=== PATIENT | male | born 1985 | race Hispanic/Latino ===

== ENCOUNTER 2023-06-11 12:41 | Inpatient (IN) | payer SELFPAY ==
[~2023-06-11 12:41] MED LIST: Iopamidol-370 76% 500 ML MDV (1 ML CHARGE) ONE
[2023-06-11] MEDS ORDERED: Ketorolac Tromethamine 30 MG (1 mL) VIAL ONE (13:20)
[2023-06-11] MEDS ORDERED: Morphine 4 MG/ML VIAL ONE (13:21)
[2023-06-11] MEDS ORDERED: Sodium Chloride 0.9% 100 ML ONE (13:22)
[2023-06-11] MEDS ORDERED: Piperacillin/Tazobactam 4.5 GM VIAL ONE (13:22)
[2023-06-11 13:29] LABS: #Monocytes 1.5 thou/uL (0.11-0.59); #Neutrophils 17.6 thou/uL (1.40-6.50); %Basophils 0.1 % (0.0-1.0); %Lymphocytes 4.8 % (21.0-51.0); %Monocytes 7.3 % (0.0-10.0); %Neutrophils 87.4 % (42.0-75.0); Hematocrit 42.2 % (42.0-52.0); Hemoglobin 14.6 g/dL (14.0-18.0); Mean Corpuscular HGB CONC 34.6 g/dL (32.0-36.0); Mean Corpuscular Hemoglobin 31.6 pg (27.0-31.0); Mean Corpuscular Volume 91.3 fl (78.0-98.0); Mean Platelet Volume 11.4 fL (7.4-10.4); Platelet Count 242 10x3/uL (130-400); Red Blood Cell (RBC) Count 4.62 mill/uL (4.70-6.10); White Blood Cell (WBC) Count 20.1 10x3/uL (4.8-10.8)
[2023-06-11 13:51] LABS: ALT (SGPT) 62 U/L (8-55); AST (SGOT) 33 U/L (5-34); Albumin 4.6 g/dL (3.5-5.0); Alkaline Phosphatase 86 U/L (40-110); Anion Gap 16 mmol/L (10-20); BUN (Urea Nitrogen) 10 mg/dL (8.9-20.6); Bilirubin, Total 1.1 mg/dL (0.2-1.2); Calc. Creatinine Clearance 0 mL/min (70-130); Calcium 9.3 mg/dL (7.8-10.44); Carbon Dioxide 21 mmol/L (22-29); Chloride 103 mmol/L (98-107); Estimated GFR 104; Globulin 3.7 g/dL (2.4-3.5); Glucose 119 mg/dL (70-105); Potassium 4.2 mmol/L (3.5-5.1); Protein, Total 8.3 g/dL (6.0-8.3); Sodium 136 mmol/L (136-145)
[2023-06-11] MEDS ORDERED: Vancomycin (BATCH) 1.5 GM in Premix 1 BAG IVPB SCH (14:00)
[2023-06-11] MEDS ORDERED: Dexamethasone 10 MG/ML VIAL ONE (14:39)
[2023-06-11] MEDS ORDERED: Acetaminophen 325 MG TAB PO PRN (15:09)
[2023-06-11] MEDS ORDERED: Ondansetron PF 4 MG/2 ML Vial IVP PRN (15:09)
[2023-06-11 15:29] LABS: Hemoglobin A1c 5.9 % (4.0-6.0)
[2023-06-11] MEDS ORDERED: Ketorolac Tromethamine 30 MG (1 mL) VIAL IVP PRN (16:05)
[2023-06-11] MEDS ORDERED: Bisacodyl 10 MG SUPP PR PRN (16:05)
[2023-06-11] MEDS ORDERED: Polyethylene Glycol 3350 17 GM Packet PO PRN (16:05)
[2023-06-11] MEDS ORDERED: Acetaminophen 650 MG Suppository PR PRN (16:06)
[2023-06-11] MEDS ORDERED: Morphine 2 MG/ML VIAL SLOW IVP PRN (16:06)
[2023-06-11 17:07] VITALS: BMI 25.6
[2023-06-11] MEDS ORDERED: FLU VACC QS2023-24(6MOS UP)/PF 60 MCG/0.5 ML SYRINGE IM ONE (17:15)
[2023-06-11] MEDS: Sodium Chloride 0.9% 1,000 ML IV SCH (17:40)
[2023-06-11] MEDS: Cefepime 2 GM in Sodium Chloride 0.9% 100 ML IVPB SCH (21:55)
[2023-06-11] MEDS: Famotidine/PF 20 mg/2ml Vial SLOW IVP SCH (21:55)
[2023-06-11] MEDS: metroNIDAZOLE 500 MG in Premix 1 BAG IVPB SCH (21:55)
[2023-06-11] MEDS: Dexamethasone 10 MG/ML VIAL SLOW IVP SCH (21:55)
[2023-06-11] MEDS: Senokot S 8.6-50 MG TAB PO SCH (21:56)
[2023-06-11 22:52] LABS: Amphetamine Not Detected (NotDetected); Barbiturates Screen Not Detected (NotDetected); Benzodiazepine Screen Not Detected (NotDetected); Cocaine Metabolite Screen Not Detected (NotDetected); Methadone Not Detected (NotDetected); Methamphetamine Not Detected (NotDetected); Opiate Screen Detected (NotDetected); Oxycodone Screen Not Detected (NotDetected); Phencyclidine (PCP) Not Detected (NotDetected); THC/Cannabinoid Screen Not Detected (NotDetected); Tricyclic Screen Not Detected (NotDetected)
[2023-06-12] MEDS ORDERED: Vancomycin 1 GM in Premix 1 BAG IVPB SCH (02:00)
[2023-06-12 03:58] LABS: #Monocytes 0.3 thou/uL (0.11-0.59); #Neutrophils 14.8 thou/uL (1.40-6.50); %Basophils 0.1 % (0.0-1.0); %Monocytes 1.8 % (0.0-10.0); %Neutrophils 92.6 % (42.0-75.0); Hematocrit 35.9 % (42.0-52.0); Hemoglobin 12.3 g/dL (14.0-18.0); Mean Corpuscular HGB CONC 34.3 g/dL (32.0-36.0); Mean Corpuscular Hemoglobin 31.8 pg (27.0-31.0); Mean Corpuscular Volume 92.8 fl (78.0-98.0); Mean Platelet Volume 11.9 fL (7.4-10.4); Platelet Count 222 10x3/uL (130-400); RBC Distribution Width 11.7 % (11.5-14.5); Red Blood Cell (RBC) Count 3.87 mill/uL (4.70-6.10)
[2023-06-12 04:05] LABS: INR-International Normal Ratio 1.1; PTT 37.5 sec (22.9-36.1); Prothrombin Time 14.6 sec (12.0-14.7)
[2023-06-12 04:23] LABS: ALT (SGPT) 42 U/L (8-55); AST (SGOT) 15 U/L (5-34); Albumin 3.9 g/dL (3.5-5.0); Alkaline Phosphatase 70 U/L (40-110); Anion Gap 11 mmol/L (10-20); BUN (Urea Nitrogen) 13 mg/dL (8.9-20.6); Bilirubin, Total 0.5 mg/dL (0.2-1.2); Calc. Creatinine Clearance 129 mL/min (70-130); Calcium 8.4 mg/dL (7.8-10.44); Carbon Dioxide 22 mmol/L (22-29); Chloride 107 mmol/L (98-107); Estimated GFR 117; Globulin 2.8 g/dL (2.4-3.5); Glucose 191 mg/dL (70-105); Magnesium 1.9 mg/dL (1.6-2.6); Potassium 3.8 mmol/L (3.5-5.1); Protein, Total 6.7 g/dL (6.0-8.3); Sodium 136 mmol/L (136-145)
[2023-06-12 04:37] LABS: HBCM Index 0.06 S/CO (0-0.79); HBSAg Index 0.21 S/CO (0-0.99); HIV (1/2) Antibody/Antigen Non-Reactive (NonReactive); HIV 1/2 INDEX 0.23 S/CO (<1.00); Hep A IgM AB Non-Reactive S/CO (NonReactive); Hep B Surf Ag Non-Reactive S/CO (NonReactive); Hep C IgG Ab Non-Reactive S/CO (NonReactive); Hep C Index 0.09 S/CO (0-0.79); Hepatitis B Core IgM Abs Non-Reactive S/CO (NonReactive); Thyroid Stimulating Hormone 0.2816 uIU/mL (0.35-4.94)
[2023-06-12] MEDS: Cefepime 2 GM in Sodium Chloride 0.9% 100 ML IVPB SCH (04:45)
[2023-06-12] MEDS: metroNIDAZOLE 500 MG in Premix 1 BAG IVPB SCH (04:46)
[2023-06-12] MEDS: Sodium Chloride 0.9% 1,000 ML IV SCH ×2 (04:46→09:24)
[2023-06-12 08:00] VITALS: BP 121/72; TEMP 97.9
[2023-06-12] MEDS: Senokot S 8.6-50 MG TAB PO SCH (09:24)
[2023-06-12] MEDS: Famotidine/PF 20 mg/2ml Vial SLOW IVP SCH (09:30)
[2023-06-12] MEDS: Dexamethasone 10 MG/ML VIAL SLOW IVP SCH (09:30)
== END 2023-06-12 14:03 | disposition home or self-care (01) | DRG 872 ==
LOC: SUATTDRO 12:41 → ERS 12:41 → SJJU 15:12
PROVIDERS: ADMIT Family Medicine; ATTEND Family Medicine
DX: A41.9 Sepsis, unspecified organism (principal); K12.2 Cellulitis and abscess of mouth; R73.03 Prediabetes; R13.10 Dysphagia, unspecified; Z79.899 Other long term (current) drug therapy
CPT/HCPCS: 36415; 70491; 71045; 80053; 80074; 80306; 83036; 83605; 83735; 84443; 85025; 85610; 85730; 86850; 86900; 86901; 87040; 87081; 87389; 87430; 93005; 96365; 96366; 96367; 96375; J0692; J1100; J1885; J2270; J2543; J3370; J3370-JW; J3490; J7050; Q9967; S0028